=== PATIENT | male | born 1950 ===

== ENCOUNTER 2021-07-30 08:15 | Outpatient (REF) | payer OTHER, SELFPAY ==
--- NOTE | ~2021-07-30 | XR_ITS ---
EXAMINATION: XR SHOULDER, RIGHT CLINICAL INFORMATION: Pain COMPARISON: None TECHNIQUE: Three views of the right shoulder. FINDINGS: No acute fracture or dislocation. Small marginal osteophytes along the acromioclavicular and glenohumeral joints. No erosive changes. Soft tissues unremarkable. XR/XR shoulder RT min 2V IMPRESSION: No acute findings. Mild degenerative changes as described.
== END 2021-07-30 08:16 | disposition home or self-care (01) ==
LOC: HO.HOSX 08:15
PROVIDERS: Visit Provider Physician Assistant
DX: M75.101 Unspecified rotator cuff tear or rupture of right shoulder, not specified as traumatic (principal)
CPT/HCPCS: 73030; 99202